=== PATIENT | male | born 1960 | race Caucasian/White ===

== ENCOUNTER → 2016-12-09 | Outpatient (CLI) | payer MEDICARE, OTHER ==
[~2016-12-09] MED LIST: ADULT LOW DOSE81 MG PO; CARDURA 2MG TAB2 MG PO; COZAAR100 MG PO; DOC-Q-LACE100 MG PO; FENOFIBRATE160 MG PO; JANUVIA50 MG PO; LEVOTHYROXINE112 MCG PO; METFORMIN HCL500 M2 PO; METOPROLOL SUCC50 MG PO; NORVASC 5 MG TAB5 MG PO; OMEGA-31000 MG PO; OMEPRAZOLE20 MG PO; OMNICEF 300 MG300 MG PO; PRAVACHOL40 MG PO; VENTOLIN HFA 66.7 GM INH; VITAMIN D5000 UNIT PO; VOLTAREN100 GM TP; ZOFRAN ODT4 MG PO
== END ==
LOC: RAD 12:55
DX: M25.642 Stiffness of left hand, not elsewhere classified (principal); M19.042 Primary osteoarthritis, left hand
CPT/HCPCS: 73130

== ENCOUNTER 2017-02-09 08:57 | Emergency (ER) | payer MEDICARE, OTHER ==
[2017-02-09 10:38] LABS: RED BLOOD COUNT 5.27 M/UL (4.20-5.50)
[2017-02-09 10:48] LABS: WHITE BLOOD COUNT 10.3 K/UL (4.5-11.0)
== END 2017-02-09 13:15 | disposition home or self-care (01) ==
LOC: ER1 08:57
PROVIDERS: Emergency Medicine
DX: J11.1 Influenza due to unidentified influenza virus with other respiratory manifestations (principal); J40 Bronchitis, not specified as acute or chronic; L04.2 Acute lymphadenitis of upper limb; R93.8 Abnormal findings on diagnostic imaging of other specified body structures; K44.9 Diaphragmatic hernia without obstruction or gangrene; E11.9 Type 2 diabetes mellitus without complications; I10 Essential (primary) hypertension
CPT/HCPCS: 36415; 80053; 81001; 84484; 85025; 85379; 87040; 94664; 96360; 96361; 99285; J7050; Q9963

== ENCOUNTER 2017-02-17 19:11 | Inpatient (IN) | payer MEDICARE, OTHER ==
[~2017-02-17] VITALS: Ht 188 cm; Wt 108.1 kg
[2017-02-17 23:43] LABS: HEMOGLOBIN 14.3 gm/dl (14.0-17.5); RED BLOOD COUNT 4.72 M/UL (4.20-5.50)
[2017-02-18] MEDS ORDERED: ZOFRAN ODT4 MG PO (06:19)
[2017-02-18] MEDS ORDERED: OMNICEF 300 MG300 MG PO (06:21)
[2017-02-18] MEDS ORDERED: VENTOLIN HFA 66.7 GM INH (06:22)
[2017-02-18] MEDS ORDERED: ADULT LOW DOSE81 MG PO (06:23)
[2017-02-18] MEDS ORDERED: CARDURA 2MG TAB2 MG PO (06:24)
[2017-02-18] MEDS ORDERED: DOC-Q-LACE100 MG PO (06:24)
[2017-02-18] MEDS ORDERED: LEVOTHYROXINE112 MCG PO (06:25)
[2017-02-18] MEDS ORDERED: COZAAR100 MG PO (06:26)
[2017-02-18] MEDS ORDERED: METFORMIN HCL500 M2 PO (06:26)
[2017-02-18] MEDS ORDERED: METOPROLOL SUCC50 MG PO (06:29)
[2017-02-18] MEDS ORDERED: OMEPRAZOLE20 MG PO (06:29)
[2017-02-18] MEDS ORDERED: NORVASC 5 MG TAB5 MG PO (06:30)
[2017-02-18] MEDS ORDERED: PRAVACHOL40 MG PO (06:31)
[2017-02-18] MEDS ORDERED: OMEGA-31000 MG PO (06:31)
[2017-02-18] MEDS ORDERED: VITAMIN D5000 UNIT PO (06:32)
[2017-02-18] MEDS ORDERED: FENOFIBRATE160 MG PO (06:32)
[2017-02-18] MEDS ORDERED: VOLTAREN100 GM TP (06:35)
[2017-02-19 07:34] LABS: RED BLOOD COUNT 4.33 M/UL (4.20-5.50); WHITE BLOOD COUNT 10.2 K/UL (4.5-11.0)
[2017-02-19] MEDS ORDERED: JANUVIA50 MG PO (12:22)
== END 2017-02-19 18:29 | disposition home or self-care (01) | DRG 684 ==
LOC: ER1 19:11 → M/S 02-18 03:56 → ZEROF 02-18 03:56 → M/S 02-18 06:05
PROVIDERS: Family Medicine; Internal Medicine; Physician Assistant; ADMIT Internal Medicine
DX: N17.9 Acute kidney failure, unspecified (principal); E11.9 Type 2 diabetes mellitus without complications; E03.9 Hypothyroidism, unspecified; K76.0 Fatty (change of) liver, not elsewhere classified; N40.0 Benign prostatic hyperplasia without lower urinary tract symptoms; E78.5 Hyperlipidemia, unspecified; R74.0 Nonspecific elevation of levels of transaminase and lactic acid dehydrogenase [LDH]; B27.00 Gammaherpesviral mononucleosis without complication; R16.1 Splenomegaly, not elsewhere classified; I10 Essential (primary) hypertension; F81.9 Developmental disorder of scholastic skills, unspecified; J43.9 Emphysema, unspecified; N14.2 Nephropathy induced by unspecified drug, medicament or biological substance; K59.00 Constipation, unspecified; R61 Generalized hyperhidrosis; Z79.84 Long term (current) use of oral hypoglycemic drugs; Z79.82 Long term (current) use of aspirin; Z79.899 Other long term (current) drug therapy
CPT/HCPCS: 36415; 71020; 80048; 80053; 80074; 81001; 82550; 82553; 82962; 83036; 83874; 84484; 85025; 85027; 93005; 96360; 99284; J1650; J2405; J7030

== ENCOUNTER 2021-05-16 10:47 | Emergency (ER) | payer MEDICARE, OTHER ==
[~2021-05-16 10:47] MED LIST changes: +IBUPROFEN600 MG PO
== END 2021-05-16 15:33 | disposition home or self-care (01) ==
LOC: ER1 10:47
DX: U07.1 COVID-19 (principal); E11.9 Type 2 diabetes mellitus without complications; E78.5 Hyperlipidemia, unspecified; J44.9 Chronic obstructive pulmonary disease, unspecified; I10 Essential (primary) hypertension; E03.9 Hypothyroidism, unspecified
CPT/HCPCS: 99283; U0002